=== PATIENT | female | born 1960 | race Caucasian/White ===

== ENCOUNTER 2018-03-02 13:22 | Inpatient (IN) | payer OTHER, BC ==
[~2018-03-02] VITALS: Ht 152.4 cm; Wt 85.4 kg
[2018-03-02 14:08] LABS: BASOPHIL % 0.3 % (0-2); PLATELET COUNT 217 x10^3mcL (130-400)
[2018-03-02 14:10] LABS: RED CELL DISTRIBUTION WIDTH 14.9 % (11.5-14.5)
[2018-03-02 14:57] LABS: CALCIUM 9.2 mg/dL (8.5-10.1); CARBON DIOXIDE 16.6 mmol/L (21-32); CREATININE SERUM 1.2 mg/dL (0.6-1.0); POTASSIUM SERUM 3.4 mmol/L (3.5-5.1)
[2018-03-02 15:10] LABS: ALBUMIN 4.1 g/dL (3.4-5.0); BILIRUBIN TOTAL 0.7 mg/dL (0.20-1.00); TOTAL PROTEIN, SERUM 8.1 g/dL (6.4-8.2)
[2018-03-02 16:18] LABS: MAGNESIUM 1.8 mg/dL (1.8-2.4); PHOSPHOROUS 4.3 mg/dL (2.5-4.9)
[2018-03-02 16:19] LABS: CHOLESTEROL 342 mg/dL (<200); CHOLESTEROL/HDL RATIO 4.9; HDL CHOLESTEROL 70 mg/dL (40-60); TRIGLYCERIDES 469 mg/dL (<150)
[2018-03-02 17:03] VITALS: BP 156/83
[2018-03-02] MEDS ORDERED: NEU300 PO (17:13)
[2018-03-02] MEDS ORDERED: FLUOXETINE20 M3 PO (17:14)
[2018-03-02] MEDS ORDERED: MECLIZINE HYDRO25 M1 PO (17:14)
[2018-03-02] MEDS ORDERED: OMEPRAZOLE40 M1 PO (17:14)
[2018-03-02] MEDS ORDERED: ATORVASTATIN CA40 M1 PO (17:15)
[2018-03-02] MEDS ORDERED: BUSPIRONE HCL15 MG PO (17:15)
[2018-03-02] MEDS ORDERED: LYRICA50 M1 PO (17:15)
[2018-03-02] MEDS ORDERED: NAPROSYN500 MG PO (17:16)
[2018-03-02] MEDS ORDERED: MELOXICAM15 M1 PO (17:17)
[2018-03-02] MEDS ORDERED: LORAZEPAM2 MG PO (17:18)
[2018-03-02] MEDS ORDERED: ROBAXIN500 MG PO (17:18)
[2018-03-02] MEDS ORDERED: AMBIEN10 MG PO (17:19)
[2018-03-02] MEDS ORDERED: AMITIZA24 MC1 PO (17:19)
[2018-03-02] MEDS ORDERED: CYCLOBENZAPRINE10 MG PO (17:19)
[2018-03-02] MEDS ORDERED: TOPAMAX50 M1 PO (17:21)
[2018-03-02] MEDS ORDERED: BACLOFEN10 MG PO (17:21)
[2018-03-02] MEDS ORDERED: LINZESS145 MC1 PO (17:22)
[2018-03-02] MEDS ORDERED: PROPRANOLOL HCL10 MG PO (17:22)
[2018-03-02] MEDS ORDERED: HYDROXYZINE HYD25 MG PO (17:23)
[2018-03-02 21:08] VITALS: BP 123/97
[2018-03-02 21:15] LABS: CALCIUM 8.6 mg/dL (8.5-10.1); CARBON DIOXIDE 24.5 mmol/L (21-32); CHLORIDE SERUM 113 mmol/L (98-107); GFR1 > 60 mL/min; GLUCOSE SERUM 121 mg/dL (74-106); POTASSIUM SERUM 3.7 mmol/L (3.5-5.1); SODIUM SERUM 150 mmol/L (136-145)
[2018-03-02 21:55] LABS: microscopic required? YES; urine erythrocyte TRACE (NEGATIVE)
[2018-03-02 22:35] LABS: AMPHETAMINE QUAL UR NONE DETECTED (See below)
[2018-03-03 05:43] VITALS: BP 101/63
[2018-03-03 06:35] LABS: CALCIUM 8.2 mg/dL (8.5-10.1); CHLORIDE SERUM 109 mmol/L (98-107); CREATININE SERUM 0.9 mg/dL (0.6-1.0); GFR1 > 60 mL/min; GLUCOSE SERUM 105 mg/dL (74-106); MAGNESIUM 1.9 mg/dL (1.8-2.4); PHOSPHOROUS 3.1 mg/dL (2.5-4.9); POTASSIUM SERUM 3.8 mmol/L (3.5-5.1); SODIUM SERUM 144 mmol/L (136-145)
[2018-03-03 08:15] LABS: BASOPHIL % 0.3 % (0-2); PLATELET COUNT 135 x10^3mcL (130-400)
[2018-03-03 08:19] LABS: RED CELL DISTRIBUTION WIDTH 14.7 % (11.5-14.5)
[2018-03-03 09:32] VITALS: BP 108/63
[2018-03-03 14:01] VITALS: BP 108/62
[2018-03-03 18:02] VITALS: BP 123/74
[2018-03-03 20:55] VITALS: BP 128/65
[2018-03-04 05:45] VITALS: BP 117/65
[2018-03-04 06:32] LABS: BASOPHIL % 0.3 % (0-2); RED CELL DISTRIBUTION WIDTH 13.8 % (11.5-14.5)
[2018-03-04 07:04] LABS: CALCIUM 8.9 mg/dL (8.5-10.1); CARBON DIOXIDE 22.9 mmol/L (21-32); CHLORIDE SERUM 108 mmol/L (98-107); CREATININE SERUM 0.7 mg/dL (0.6-1.0); GFR1 > 60 mL/min; GLUCOSE SERUM 88 mg/dL (74-106); MAGNESIUM 1.7 mg/dL (1.8-2.4); PHOSPHOROUS 3.9 mg/dL (2.5-4.9); PLATELET COUNT 126 x10^3mcL (130-400); POTASSIUM SERUM 3.4 mmol/L (3.5-5.1); SODIUM SERUM 140 mmol/L (136-145)
[2018-03-04 07:11] VITALS: BP 126/72
[2018-03-04 14:02] VITALS: BP 144/86
[2018-03-04 17:28] VITALS: BP 133/91
[2018-03-04 18:23] VITALS: BP 138/74
[2018-03-04 20:56] VITALS: BP 125/77
[2018-03-05 05:29] VITALS: BP 124/71
[2018-03-05 06:38] LABS: BASOPHIL % 0.6 % (0-2); PLATELET COUNT 139 x10^3mcL (130-400); RED CELL DISTRIBUTION WIDTH 14.2 % (11.5-14.5)
[2018-03-05 06:45] LABS: CALCIUM 8.5 mg/dL (8.5-10.1); CARBON DIOXIDE 23.5 mmol/L (21-32); CHLORIDE SERUM 108 mmol/L (98-107); CREATININE SERUM 0.7 mg/dL (0.6-1.0); GFR1 > 60 mL/min; GLUCOSE SERUM 90 mg/dL (74-106); POTASSIUM SERUM 3.6 mmol/L (3.5-5.1); SODIUM SERUM 142 mmol/L (136-145)
[2018-03-05 09:19] VITALS: BP 132/78
[2018-03-05 12:47] VITALS: BP 134/79
[2018-03-05] MEDS ORDERED: LEVOTHYROXINE0.05 M2 PO (13:21)
[2018-03-05 18:19] VITALS: BP 146/85
[2018-03-05 21:01] VITALS: BP 125/82
[2018-03-06 05:33] VITALS: BP 135/75
[2018-03-06 07:07] LABS: CALCIUM 8.8 mg/dL (8.5-10.1); CARBON DIOXIDE 22.5 mmol/L (21-32); CHLORIDE SERUM 109 mmol/L (98-107); CREATININE SERUM 0.7 mg/dL (0.6-1.0); GFR1 > 60 mL/min; GLUCOSE SERUM 91 mg/dL (74-106); MAGNESIUM 1.8 mg/dL (1.8-2.4); POTASSIUM SERUM 3.7 mmol/L (3.5-5.1); SODIUM SERUM 140 mmol/L (136-145)
[2018-03-06 08:23] LABS: BASOPHIL % 0.2 % (0-2); PLATELET COUNT 143 x10^3mcL (130-400); RED CELL DISTRIBUTION WIDTH 14.2 % (11.5-14.5)
[2018-03-06 09:30] VITALS: BP 146/79
[2018-03-06 12:38] VITALS: BP 146/69
[2018-03-06 16:27] VITALS: BP 152/86
[2018-03-06] MEDS ORDERED: ELIQUIS5 MG PO (17:11)
[2018-03-06 17:58] VITALS: BP 152/86
== END 2018-03-06 18:35 | disposition home or self-care (01) | DRG 280 ==
LOC: ED 13:22 → DU 15:18
PROVIDERS: Emergency Medicine; General Practice; ADMIT Family Medicine
DX: I21.A1 Myocardial infarction type 2 (principal); G92 Toxic encephalopathy; N17.9 Acute kidney failure, unspecified; E86.0 Dehydration; F32.9 Major depressive disorder, single episode, unspecified; F41.1 Generalized anxiety disorder; E78.5 Hyperlipidemia, unspecified; K58.9 Irritable bowel syndrome, unspecified; F12.10 Cannabis abuse, uncomplicated; M79.7 Fibromyalgia; G89.29 Other chronic pain; Z68.36 Body mass index [BMI] 36.0-36.9, adult
CPT/HCPCS: 78598; 83880; 85378; A9500; A9540; J0696; J1630; J1650; J2060; J2785; J3490; J7030; Q0092